=== PATIENT | female | born 1930 | race Caucasian/White ===

== ENCOUNTER 2018-03-23 13:06 | Emergency (ER) | payer OTHER ==
[2018-03-23 13:25] VITALS: RESP 18
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
[2018-03-23 14:28] LABS: Basophils % (A) 0 %; Eosinophils # (A) 0.1 k/uL (0-0.7); Eosinophils % (A) 1 %; HCT 38.9 % (34.0-46.0); HGB 13.1 gm/dL (11.4-16.0); Lymphocytes # (A) 1.2 k/uL (1.0-4.8); Lymphocytes % (A) 16 %; MCH 29.5 pg (25.0-35.0); MCHC 33.6 g/dL (31.0-37.0); Mean Platelet Volume 7.2; Monocytes # (A) 0.5 k/uL (0-1.0); Monocytes % (A) 6 %; Neutrophils # (A) 5.7 k/uL (1.3-7.7); Neutrophils % (A) 75 %; Platelet Count 195 k/uL (150-450); RBC 4.42 m/uL (3.80-5.40); RDW 15.2 % (11.5-15.5); WBC 7.6 k/uL (3.8-10.6)
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
[2018-03-23 14:36] LABS: Partial Thromboplastin Time 24.5 sec (22.0-30.0)
[2018-03-23 14:37] LABS: Albumin 3.9 g/dL (3.5-5.0); Calcium 9.3 mg/dL (8.4-10.2); Total Bilirubin 0.4 mg/dL (0.2-1.3); Total Protein 6.6 g/dL (6.3-8.2)
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
--- NOTE | 2018-03-23 15:36 | XR ---
EXAMINATION TYPE: XR pelvis AP view DATE OF EXAM: 03/23/2018 CLINICAL HISTORY: Pelvic pain. TECHNIQUE: A single AP view of the pelvis is obtained. COMPARISON: None. FINDINGS: Moderate degenerative changes of the lumbosacral junction and femoral acetabular joints are seen. There is no acute fracture/dislocation evident in the pelvis. The hip and sacroiliac joints a ppear symmetric and unremarkable. The overlying soft tissue appears unremarkable. IMPRESSION: There is no acute fracture or dislocation in the pelvis.
[2018-03-23 15:46] VITALS: BP 167/72; PULSE 59
[2018-03-23 16:18] VITALS: TEMP 98.8
== END 2018-03-23 16:17 | disposition home or self-care (01) ==
LOC: EC 13:06
DX: S06.0X0A Concussion without loss of consciousness, initial encounter (principal); S00.03XA Contusion of scalp, initial encounter; M47.812 Spondylosis without myelopathy or radiculopathy, cervical region; G31.9 Degenerative disease of nervous system, unspecified; I10 Essential (primary) hypertension; Z87.891 Personal history of nicotine dependence; Z79.82 Long term (current) use of aspirin; Z79.899 Other long term (current) drug therapy; V49.40XA Driver injured in collision with unspecified motor vehicles in traffic accident, initial encounter; Y92.410 Unspecified street and highway as the place of occurrence of the external cause
CPT/HCPCS: 36415; 70450; 71045; 72125; 72170; 80053; 85025; 85610; 85730; 86850; 86900; 86901; 93005; 99285